=== PATIENT | male | born 1990 | race Caucasian/White ===

== ENCOUNTER 2017-10-10 14:09 | Emergency (ER) | payer OTHER, SELFPAY ==
--- NOTE | 2017-10-10 15:20 | CT ---
BRAIN CT WITHOUT IV CONTRAST: HISTORY: A 27-year-old male with a history of facial injury following trauma. FINDINGS: There is some left supraorbital and left frontal soft tissue swelling. No focal mass or midline shif t. No intra- or extraaxial hemorrhage. 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 IMPRESSION: No acute intracranial process. No mass or bleed. Left supraorbital and frontal soft tissue swelling . POS: C
--- NOTE | 2017-10-10 15:38 | CT ---
FACIAL BONE CT SCAN WITHOUT IV CONTRAST: HISTORY: A 27-year-old male with a history of facial injury following trauma. FINDINGS: Minimally displaced fracture involving the left nasal bone near the maxillary junction. Minimal sinu s mucosal disease. Somewhat congested nasal turbinates bilaterally with a small left-sided nasal sep migdalia spur. Left periorbital and supraorbital soft tissue swelling. NO intraorbital abnormality. IMPRESSION: Left periorbital and supraorbital soft tissue swelling. Minimally displaced left-sided nasal bone fr acture. POS: ANNA
== END 2017-10-10 15:26 | disposition home or self-care (01) ==
LOC: EEVIPCON 14:09 → ERS 14:09
DX: S02.2XXA Fracture of nasal bones, initial encounter for closed fracture (principal); S00.83XA Contusion of other part of head, initial encounter; J45.909 Unspecified asthma, uncomplicated; F31.9 Bipolar disorder, unspecified; Y04.8XXA Assault by other bodily force, initial encounter
CPT/HCPCS: 70450; 70486

== ENCOUNTER 2018-05-30 02:29 | Emergency (ER) | payer OTHER, SELFPAY ==
[2018-05-30] MEDS ORDERED: Lidocaine 1% w/Epinephrine 1:100K 20 ML VIAL ONE (02:48)
[2018-05-30] MEDS ORDERED: Bacitracin Zinc 1 Packet ONE ×2 (05:21→05:23)
== END 2018-05-30 05:37 | disposition home or self-care (01) ==
LOC: ERS 02:29
DX: S51.812A Laceration without foreign body of left forearm, initial encounter (principal); J45.909 Unspecified asthma, uncomplicated; F31.9 Bipolar disorder, unspecified; X78.9XXA Intentional self-harm by unspecified sharp object, initial encounter
CPT/HCPCS: 12001; J2001

== ENCOUNTER 2018-05-31 18:46 | Emergency (ER) | payer OTHER, SELFPAY ==
[2018-05-31] MEDS ORDERED: Lidocaine 1% w/Epinephrine 1:100K 20 ML VIAL ONE (19:03)
[2018-05-31] MEDS ORDERED: Triple Antibiotic Oint 1 GM Packet ONE (19:52)
== END 2018-05-31 20:47 ==
LOC: ERS 18:46
DX: S51.811A Laceration without foreign body of right forearm, initial encounter (principal); J45.909 Unspecified asthma, uncomplicated; F31.9 Bipolar disorder, unspecified; X78.8XXA Intentional self-harm by other sharp object, initial encounter; Y92.149 Unspecified place in prison as the place of occurrence of the external cause
CPT/HCPCS: 12001; J2001

== ENCOUNTER 2018-06-01 01:48 | Emergency (ER) | payer OTHER, SELFPAY ==
[2018-06-01] MEDS ORDERED: Lidocaine 1% w/Epinephrine 1:100K 20 ML VIAL ONE (01:55)
== END 2018-06-01 04:04 ==
LOC: ERS 01:48
DX: S51.812A Laceration without foreign body of left forearm, initial encounter (principal); F31.9 Bipolar disorder, unspecified; J45.909 Unspecified asthma, uncomplicated; W45.8XXA Other foreign body or object entering through skin, initial encounter
CPT/HCPCS: 99283; J2001